=== PATIENT | male | born 1970 | race Caucasian/White ===

== ENCOUNTER 2017-03-31 19:51 | Emergency (ER) | payer OTHER ==
[~2017-03-31] VITALS: Ht 175.3 cm; Wt 82.0 kg
[2017-03-31 19:51] VITALS: BP 111/77; PULSE 63; RESP 16; TEMP 98; O2SAT 100
[2017-03-31] MEDS ORDERED: SODIUM CHLOR 0.9% 1000 ML INJ 1,000 ML IV ONE (20:16)
[2017-03-31] MEDS ORDERED: SODIUM CHLORIDE 0.9% FLUSH 10 ML FLUSH IVF PRN (20:30)
--- NOTE | 2017-03-31 20:31 | RADRPT ---
EXAM DATE/TIME: 03/31/2017 20:18 [facility] COMPARISON: No previous studies available for comparison. INDICATIONS : Shortness of breath. MEDICAL HISTORY : None. SURGICAL HISTORY : None. ENCOUNTER: Initial ACUITY: 1 day PAIN SCORE: 0/10 LOCATION: Bilateral chest FINDINGS: The heart and mediastinal structures are normal. The pulmonary vascular pattern is also normal. The lungs are clear. CONCLUSION: No acute cardiopulmonary disease. [place] Pace MD on March 31, 2017 at 20:28 Board Certified Radiologist. This report was verified electronically.
--- NOTE | 2017-03-31 20:56 | RADRPT ---
EXAM DATE/TIME: 03/31/2017 20:48 [facility] COMPARISON: No previous studies available for comparison. INDICATIONS : Patient states he became nauseous, diaphoretic and passed out. RADIATION DOSE: 66.01 CTDIvol (mGy) MEDICAL HISTORY : None SURGICAL HISTORY : plastic surgery on face post dog bite ENCOUNTER: Initial ACUITY: 1 day PAIN SCALE: 0/10 LOCATION: cranial TECHNIQUE: Multiple contiguous axial images were obtained of the head. Using automated exposure control and adj ustment of the mA and/or kV according to patient size, radiation dose was kept as low as reasonably a chievable to obtain optimal diagnostic quality images. DICOM format image data is available electro nically for review and comparison. FINDINGS: CEREBRUM: The ventricles are normal for age. Tiny lacune right basal ganglia. No evidence of midline shift, ma ss lesion, hemorrhage or acute infarction. No extra-axial fluid collections are seen. POSTERIOR FOSSA: The cerebellum and brainstem are intact. The 4th ventricle is midline. The cerebellopontine angle i s unremarkable. EXTRACRANIAL: The visualized portion of the orbits is intact. SKULL: The calvaria is intact. No evidence of skull fracture. CONCLUSION: 1. No acute intracranial abnormality. 2. Tiny lacune right basal ganglia likely prominent vascular channel. Merrill West MD on March 31, 2017 at 20:53 Board Certified Radiologist. This report was verified electronically.
[2017-03-31 20:59] LABS: CHLORIDE 100 MEQ/L (98-107); POTASSIUM 3.4 MEQ/L (3.5-5.1); SODIUM (NA) 136 MEQ/L (136-145)
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
[2017-03-31 21:03] LABS: ANION GAP 7 MEQ/L (5-15); BICARBONATE 29.5 MEQ/L (21.0-32.0); BLOOD UREA NITROGEN 9 MG/DL (7-18); MAGNESIUM 2.3 MG/DL (1.5-2.5)
[2017-03-31 21:06] LABS: ALT (GPT) 15 U/L (12-78); AST (GOT) 13 U/L (15-37); GLOMERULAR FILTRATION RATE 80 ML/MIN (>89)
[2017-03-31 21:08] LABS: TOTAL BILIRUBIN ADULT 0.3 MG/DL (0.2-1.0)
[2017-03-31 21:09] LABS: ALKALINE PHOSPHATASE 76 U/L (45-117); CREATINE KINASE 167 U/L (39-308)
[2017-03-31 21:15] VITALS: BP_SYST 105; BP_SYST 113; BP_SYST 117; BP_DIAS 72; BP_DIAS 78; RESP 16
[2017-03-31 21:18] LABS: AUTOMATED NEUTROPHIL # 11.3 TH/MM3 (1.8-7.7); BASOPHIL # 0.2 TH/MM3 (0-0.2); BASOPHIL % 1.1 % (0.0-2.0); EOSINOPHIL # 0.2 TH/MM3 (0-0.4); EOSINOPHIL % 1.5 % (0.0-4.0); HEMATOCRIT 41.3 % (39.0-51.0); LYMPH % 20.3 % (9.0-44.0); LYMPHOCYTE # 3.3 TH/MM3 (1.0-4.8); MEAN CELL VOLUME 89.3 FL (80.0-100.0); MEAN CORPUSCULAR HEMOGLOBIN 29.6 PG (27.0-34.0); MEAN CORPUSCULAR HGB CONC 33.2 % (32.0-36.0); NEUT % 70.1 % (16.0-70.0); PLATELET COUNT 295 TH/MM3 (150-450); RED BLOOD COUNT 4.62 MIL/MM3 (4.50-5.90); RED CELL DISTRIBUTION WIDTH 13.3 % (11.6-17.2); WHITE BLOOD COUNT 16.1 TH/MM3 (4.0-11.0)
[2017-03-31 21:21] LABS: CKMB 1.3 NG/ML (0.5-3.6)
[2017-03-31 21:36] LABS: HEMO FLAGS DIFF FINAL
[2017-03-31 21:43] LABS: BLOOD, URINE NEG (NEG); GLUCOSE,URINE NEG (NEG); KETONE, URINE TRACE mg/dL (NEG); NITRITE,URINE NEG (NEG); PH, URINE 6.5 (5.0-8.5)
[2017-03-31 21:59] LABS: URINE COLOR YELLOW (YELLW/STRAW)
[2017-03-31 22:00] LABS: MUCUS URINE OCC /lpf (OCC); SQUAMOUS EPITHELIAL CELL URINE 0-5 /hpf (0-5)
[2017-03-31 22:01] LABS: COMMENT (UR) CULT NOT INDICATED; CULTURE IF INDICATED CULT NOT INDICATED; WBC, URINE 0-2 /hpf (0-5)
[2017-03-31] MEDS ORDERED: POTASSIUM CHLORIDE 20 MEQ CONTROLLED RELEASE TAB PO ONE (22:45)
[2017-03-31] MEDS ORDERED: ZOFR4TAB3 SL (23:07)
[2017-03-31 23:21] VITALS: BP 113/85
--- NOTE | 2017-04-01 14:15 | EKG ---
Date Performed: 03/31/2017 Time Performed: 20:29:47 PTAGE: 45 years EKG: SINUS BRADYCARDIA MODERATE INTRAVENTRICULAR CONDUCTION DELAY BORDERLINE ECG NO PREVIOUS TRACING DOCTOR: Avani Dubon Interpretating Date/Time 04/01/2017 14:08:14
== END 2017-03-31 23:32 | disposition home or self-care (01) ==
LOC: EDBD 19:51 → PHED 19:51
DX: R55 Syncope and collapse (principal); F17.210 Nicotine dependence, cigarettes, uncomplicated
CPT/HCPCS: 70450; 71010; 80053; 81001; 82550; 82552; 83735; 84484; 85025; 93005; 96360; 99285; J7030